=== PATIENT | male | born 1985 | race African-American/Black ===

== ENCOUNTER 2020-09-03 06:16 | Emergency (ER) | payer SELFPAY ==
[~2020-09-03] VITALS: Ht 188 cm; Wt 66.8 kg
--- NOTE | 2020-09-03 06:34 | EKG ---
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
--- NOTE | 2020-09-03 06:42 | RAD ---
EXAM: CHEST ONE VIEW. HISTORY: Chest pain. COMPARISON: None. FINDINGS: A frontal view of the chest is obtained. There are no confluent infiltrates. There is no pneumothorax or pleural effusion. The heart is not en larged. IMPRESSION: 1. No confluent infiltrates. Electronically signed by: Trina Parekh MD (09/03/2020 6:40 AM) [facility]
[2020-09-03 06:44] LABS: BASO % 1 % (0-3); EOS # 0.1 x10^3/uL (0.0-0.7); EOS % 1 % (0-3); HEMATOCRIT 43.9 % (39.0-53.0); HEMOGLOBIN 13.7 g/dL (13.0-17.5); LYMPH # 2.7 x10^3/uL (1.0-4.8); LYMPH % 45 % (24-48); MEAN CORPUSCULAR HEMOGLOBIN 23 pg (25-35); MEAN CORPUSCULAR HGB CONC 31 g/dL (31-37); MEAN CORPUSCULAR VOLUME 74 fL (79-100); MONO # 0.5 x10^3/uL (0.0-1.1); MONO % 8 % (0-9); NEUT # 2.8 x10^3/uL (1.8-7.7); NEUT % 45 % (31-73); PLATELET COUNT 232 x10^3/uL (140-400); RED BLOOD COUNT 5.94 x10^6/uL (4.30-5.70); RED CELL DISTRIBUTION WIDTH 14.4 % (11.5-14.5); WHITE BLOOD COUNT 6.1 x10^3/uL (4.0-11.0)
[2020-09-03 06:45] LABS: CREATININE 1.1 mg/dL (0.7-1.3); GFR 93.3
--- NOTE | 2020-09-03 06:52 | PHYS DOC ---
Past Medical History Past Medical History: Hypertension Past Surgical History: No Surgical History Smoking Status: Never Smoker Alcohol Use: Rarely General Adult EDM: Chief Complaint: CHEST PAIN HPI: HPI: Patient is a 34 year old male who presented to ER due to substernal chest pain off and on for 2 nights. Patient says he could not sleep due to the pain. Patient denies any nausea vomiting, no cough, no fever. Patient denies any trouble breathing. Patient denies any history of COVID-19 infection. Patient denies any known exposure to anybody with Covid like infection. Patient has no immediate family history of heart problem, denies any history of diabetes, denies any history of blood clot disorder. Patient denies any recent travel or operation. Patient was told that he had a history of hypertension but he is not on any medication. Patient says nothing make the pain worse or better. Review of Systems: Review of Systems: Constitutional: Denies fever or chills. [] Eyes: Denies change in visual acuity. [] HENT: Denies nasal congestion or sore throat. [] Respiratory: Denies cough or shortness of breath. [] Cardiovascular: Positive for chest pain, no edema GI: Denies abdominal pain, nausea, vomiting, bloody stools or diarrhea. [] : Denies dysuria. [] Musculoskeletal: Denies back pain or joint pain. [] Integument: Denies rash. [] Neurologic: Denies headache, focal weakness or sensory changes. [] Endocrine: Denies polyuria or polydipsia. [] Lymphatic: Denies swollen glands. [] Psychiatric: Denies depression or anxiety. [] Heart Score: Risk Factors: Risk Factors: DM, Current or recent (<one month) smoker, HTN, HLP, family history of CAD, obesity. Risk Scores: Score 0 - 3: 2.5% MACE over next 6 weeks - Discharge Home Score 4 - 6: 20.3% MACE over next 6 weeks - Admit for Clinical Observation Score 7 - 10: 72.7% MACE over next 6 weeks - Early Invasive Strategies Current Medications: Current Medications Medications (Trade) Dose Ordered Sig/Colleen Start Time Stop Time Status Last Admin Dose Admin Famotidine (Pepcid Vial) 20 mg 1X ONCE 09/03/20 07:00 09/03/20 07:01 Multi-Ingredient Mouthwash/Gargle (Gi Cocktail) 20 ml 1X ONCE 09/03/20 07:00 09/03/20 07:01 Allergies: Allergies: Allergies Coded Allergies Type Severity Reaction Last Updated Verified No Known Drug Allergies 09/03/20 No Physical Exam: PE: Constitutional: Well developed, well nourished, no acute distress, non-toxic appearance. [] HENT: Normocephalic, atraumatic, bilateral external ears normal, oropharynx moist, no oral exudates, nose normal. [] Eyes: PERRLA, EOMI, conjunctiva normal, no discharge. [] Neck: Normal range of motion, no tenderness, supple, no stridor. [] Cardiovascular:Heart rate regular rhythm, no murmur [] Lungs & Thorax: Bilateral breath sounds clear to auscultation [] Abdomen: Bowel sounds normal, soft, no tenderness, no masses, no pulsatile masses. [] Skin: Warm, dry, no erythema, no rash. [] Back: No tenderness, no CVA tenderness. [] Extremities: No tenderness, no cyanosis, no clubbing, ROM intact, no edema. [] Neurologic: Alert and oriented X 3, normal motor function, normal sensory function, no focal deficits noted. [] Psychologic: Affect normal, judgement normal, mood normal. [] Current Patient Data: Vital Signs: Vital Signs Date Time Temp Pulse Resp B/P (MAP) Pulse Ox O2 Delivery O2 Flow Rate FiO2 09/03/20 06:16 97.7 93 20 162/87 (112) 99 Room Air 97.7 EKG: EKG: EKG was done at 6:25 AM, heart rate of 101 beats per minute, sinus tachycardia, left atrial abnormality, no ST segment elevation, normal axis Radiology/Procedures: Radiology/Procedures: [] [address] [place], [place] [id number] IMAGING REPORT Signed PATIENT: TREVON BYRDACCOUNT: [id number] : 1985 LOCATION: ER AGE: 34 SEX: M EXAM STATUS: REG ER ORD. PHYSICIAN: ELLYN TAYLOR DO REASON: chest pain PROCEDURE: PORTABLE CHEST 1V EXAM: CHEST ONE VIEW. HISTORY: Chest pain. COMPARISON: None. FINDINGS: A frontal view of the chest is obtained. There are no confluent infiltrates. There is no pneumothorax or pleural effusion. The heart is not enlarged. IMPRESSION: 1. No confluent infiltrates. Electronically signed by: Trina Parekh MD (09/03/2020 6:40 AM) [facility] DICTATED and SIGNED BY: SARA PAREKH MD DATE: 09/03/20 [id number] [address] [place] [address] IMAGING REPORT Signed PATIENT: TREVON BYRDACCOUNT: [id number] : 1985 LOCATION: ER AGE: 34 SEX: M EXAM STATUS: REG ER ORD. PHYSICIAN: ELLYN TAYLOR DO REASON: chest pain hypertensive PROCEDURE: CT ANGIO CHEST ABD PELVIS CTA CHEST_ABDOMEN_AND PELVIS Clinical Indication: Chest pain, hypertension COMPARISON: None TECHNIQUE: Multiple contiguous axial images were obtained throughout the chest, abdomen, and pelvis with the use of IV contrast. Axial images were reformatted into coronal and sagittal planes. MIP and 3-D reconstructions were obtained. 90 mL Omnipaque 350 was administered. One or more of the following dose reduction techniques were utilized: Automated exposure control (AEC), Adjustment of mA and/or kV according to patient size, Use of iterative reconstruction technique such as ASiR, CT scan done according to ALARA and image gently/image wisely. Findings: The thyroid is symmetric. There is no axillary, mediastinal, or hilar adenopathy. No aortic intramural hematoma, dissection, or aneurysm. The cardiac size is normal. There is no pericardial effusion. The central airways are patent. No pulmonary mass or consolidation. No pleural effusion is observed. There is no pneumothorax. The liver, gallbladder, spleen, pancreas, and adrenal glands are unremarkable. The kidneys are unremarkable. There is no significant mesenteric or retroperitoneal adenopathy identified. There is no evidence of free intraperitoneal fluid or pneumoperitoneum. Visualized portions of the bowel are grossly unremarkable. Bladder is unremarkable. There is no significant pelvic ascites. No significant iliac or inguinal adenopathy is identified. No acute osseous abnormality. IMPRESSION: 1. No aortic intramural hematoma, dissection, or aneurysm. 2. No pulmonary mass or consolidation. No acute abdominal process. Electronically signed by: Shirley Acevedo MD (09/03/2020 8:17 AM) [id number] DICTATED and SIGNED BY: SHIRLEY ACEVEDO MD DATE: 09/03/20 [id number] 0 Course & Med Decision Making: Course & Med Decision Making Pertinent Labs and Imaging studies reviewed. (See chart for details) Patient is a 34-year-old male who presented to ER due to epigastric substernal chest pain that been going on for 2 days that he could not sleep due to the pain. EKG and lab work did not show any acute problem. Initially had heart rate and had blood pressure was elevated, however as he calmed down his heart rate slowed down to 69 beats per minute and his blood pressure was 130/75. We will discharge him home, he will need to follow-up with his family physician for outpatient reevaluation and treatment. Dragon Disclaimer: Dragon Disclaimer: This electronic medical record was generated, in whole or in part, using a voice recognition dictation system. Departure Departure Impression: Primary Impression: Chest pain Additional Impression: Gastritis Disposition: 01 DC HOME SELF CARE/HOMELESS Condition: STABLE Referrals: NO PCP (PCP) Follow up with your family physician for reevaluation and treatment next week. Patient Instructions: Chest Pain (Nonspecific), Gastritis, Adult Additional Instructions: Thank you for visiting our Emergency Department. We appreciate you trusting us with your care. If any additional problems come up don't hesitate to return to visit us. Please follow up with your primary care provider so they can plan additional care if needed and know about the problem that you had. If symptoms worsen come back to the Emergency Department. Any concerning symptoms that start such as chest pain, shortness of air, weakness or numbness on one side of the body, running high fevers or any other concerning symptoms return to the ER. Scripts Omeprazole Magnesium (PRILOSEC OTC) 20 Mg Tablet. 1 TAB PO DAILY for 30 Days, #30 TAB 0 Refills Prov: ELLYN TAYLOR DO 09/03/20 Sucralfate (CARAFATE) 1 Gm Tablet 1 TAB PO QID for 14 Days, #56 TAB 0 Refills Prov: ELLYN TAYLOR DO 09/03/20 ELLYN TAYLOR DO Sep 03, 2020 06:52
[2020-09-03 06:53] LABS: ALBUMIN 4.3 g/dL (3.4-5.0); ALBUMIN/GLOBULIN RATIO 1.2 (1.0-1.7); TOTAL BILIRUBIN 0.7 mg/dL (0.2-1.0); TOTAL PROTEIN 7.9 g/dL (6.4-8.2)
[2020-09-03] MEDS ORDERED: FAMOTIDINE 20 MG/2 ML VIAL IVP ONE (07:00)
[2020-09-03] MEDS ORDERED: LIDO:MAALOX 1:1 20 ML SINGLE DOSE. SWSW ONE (07:00)
--- NOTE | 2020-09-03 07:05 | EKG ---
[facility] [address] [place] [address] Test Date: 2020-09-03 Test Time: 06:55:34 Pat Name: TREVON BYRD Department: Room: Gender: M Ag Service Manager: : 1985 Requested By: ELLYN TAYLOR Order Number: [id number] Reading MD: Measurements Intervals [place] Rate: 61 P: 57 DC: 194 QRS: 38 QRSD: 86 T: 49 QT: 344 QTc: 351 Interpretive Statements SINUS RHYTHM NO SPECIFIC ECG ABNORMALITIES RI6.02 No previous ECG available for comparison
[2020-09-03] MEDS ORDERED: POTASSIUM CHLORIDE 10 MEQ TABLET.ER. PO ONE (07:15)
[2020-09-03] MEDS ORDERED: IOHEXOL 350 MG/ML 100 ML VIAL. IV ONE (07:30)
[2020-09-03] MEDS ORDERED: CONTRAST GIVEN. MC PRN (07:30)
--- NOTE | 2020-09-03 08:19 | RAD ---
CTA CHEST_ABDOMEN_AND PELVIS Clinical Indication: Chest pain, hypertension COMPARISON: None TECHNIQUE: Multiple contiguous axial images were obtained throughout the chest, abdomen, and pelvis with the use of IV contrast. Axial images were reformatted into coronal and sagittal planes. MIP and 3-D reconstr uctions were obtained. 90 mL Omnipaque 350 was administered. One or more of the following dose reduct ion techniques were utilized: Automated exposure control (AEC), Adjustment of mA and/or kV according to patient size, Use of iterative reconstruction technique such as ASiR, CT scan done according to AL YANA and image gently/image wisely. Findings: The thyroid is symmetric. There is no axillary, mediastinal, or hilar adenopathy. No aortic intramural hematoma, dissection, or aneurysm. The cardiac size is normal. There is no jose g cardial effusion. The central airways are patent. No pulmonary mass or consolidation. No pleural effusion is observed. There is no pneumothorax. The liver, gallbladder, spleen, pancreas, and adrenal glands are unremarkable. The kidneys are unrem arkable. There is no significant mesenteric or retroperitoneal adenopathy identified. There is no e vidence of free intraperitoneal fluid or pneumoperitoneum. Visualized portions of the bowel are susan sly unremarkable. Bladder is unremarkable. There is no significant pelvic ascites. No significant iliac or inguinal a denopathy is identified. No acute osseous abnormality. IMPRESSION: 1. No aortic intramural hematoma, dissection, or aneurysm. 2. No pulmonary mass or consolidation. No acute abdominal process. Electronically signed by: Andreas Acevedo MD (09/03/2020 8:17 AM) [id number]
[2020-09-03] MEDS ORDERED: SUCR1TAB35 PO (08:57)
[2020-09-03] MEDS ORDERED: OMEP20TA63 PO (08:57)
[2020-09-03 08:58] VITALS: BP 134/71
== END 2020-09-03 09:04 | disposition home or self-care (01) ==
LOC: ER 06:16
DX: K29.70 Gastritis, unspecified, without bleeding (principal); R07.89 Other chest pain; I10 Essential (primary) hypertension
CPT/HCPCS: 36415; 71045; 71275; 74174; 80053; 83690; 83735; 83880; 84484; 85025; 93005; 96374; 99285; J3490; Q9967